=== PATIENT | male | born 2000 | race African-American/Black ===

== ENCOUNTER 2020-12-01 15:46 | Inpatient (IN) | payer OTHER ==
[2020-12-01 16:35] LABS: #Eosinphils 0.1 thou/uL (0.0-0.7); #Lymphocytes 0.9 thou/uL (1.20-3.40); #Monocytes 0.7 thou/uL (0.11-0.59); #Neutrophils 10.6 thou/uL (1.40-6.50); %Eosinophils 0.5 % (0.0-10.0); %Lymphocytes 7.5 % (28.0-48.0); %Monocytes 5.5 % (0.0-4.0); %Neutrophils 86.5 % (31.0-61.0); Hemoglobin 7.3 g/dL (14.0-18.0); Mean Corpuscular HGB CONC 31.7 g/dL (32.0-36.0); Mean Corpuscular Hemoglobin 28.2 pg (25.0-35.0); Mean Platelet Volume 8.8 fL (7.4-10.4); Platelet Count 228 thou/uL (130-400); Red Blood Cell (RBC) Count 2.59 mill/uL (4.00-5.20); White Blood Cell (WBC) Count 12.3 thou/uL (4.8-10.8)
[2020-12-01 16:54] LABS: Acetaminophen Less than 6.0 mcg/mL (10.0-30.0); Alcohol Less than 10 mg/dL (Less than 10); CK (CPK) 149 U/L (30-200); Salicylate Less than 8.0 mg/dL (15.0-30.0)
[2020-12-01 16:58] LABS: ALT (SGPT) 8 U/L (8-55); AST (SGOT) 14 U/L (5-34); Alkaline Phosphatase 57 U/L (50-130); Anion Gap 11 mmol/L (10-20); BUN (Urea Nitrogen) 15 mg/dL (8.9-20.6); Bilirubin, Total 0.6 mg/dL (0.2-1.2); Calc. Creatinine Clearance 0 mL/min (70-130); Calcium 7.4 mg/dL (7.8-10.44); Carbon Dioxide 20 mmol/L (22-29); Chloride 113 mmol/L (98-107); Globulin 2.1 g/dL (2.4-3.5); Glucose 100 mg/dL (70-105); Potassium 3.9 mmol/L (3.5-5.1); Protein, Total 5.1 g/dL (6.0-8.3); Sodium 140 mmol/L (136-145)
--- NOTE | 2020-12-01 17:28 | RAD ---
Portable frontal chest radiograph: 12/01/2020 COMPARISON: None HISTORY: Evaluate chest following central line placement FINDINGS: There is a right-sided vascular catheter, distal tip overlying the region of the proximal r ight atrium. There is no pneumothorax, lobar consolidation, or alveolar edema. Mild prominence of the cardiac silhouette. IMPRESSION: Right vascular catheter with no evidence for pneumothorax.
[2020-12-01 18:30] LABS: SARS-CoV-2 NAA Rapid Test Not Detected (NotDetected)
[2020-12-01 19:26] LABS: Lactic Acid 2.1 mmol/L (0.5-2.2)
[2020-12-01] MEDS ORDERED: Ondansetron PF 4 MG/2 ML Vial IVP PRN (20:00)
[2020-12-01] MEDS ORDERED: Acetaminophen 325 MG TAB PO PRN (20:00)
--- NOTE | 2020-12-01 20:09 | PDOC.HHP ---
Hospitalist HPI Suicidal attempt History of Present Illness: 20-year-old incarcerated male with past medical history of previous suicidal attempt admitted from local [facility] after attempted suicide by overdosing on medication. Patient states he has taking about 26 pills of combine risperidone as well as Benadryl. He denies any symptoms now. He denies any chest pain or palpitation. He was noted by digitalized and was brought to the ER. On presentation he was hypotensive and started on IV fluid bolus with IV Levophed. Patient is awake but poor historian. He denies any headache or dizziness. He denies any blurring of vision, constipation or dry mouth. Past History: PMHx: Bipolar disorder Suicide attempt PSHx: None FHx: Unable to obtainpatient not willing to talk Social: Former smoker but currently incarcerated Hospitalist HPI ROS All other systems reviewed; all pertinent +/- noted in HPI/Subj Hospitalist Exam General Appearance: NAD, awake alert General - other findings: -young male, on room air Eye: PERRL, anicteric sclera ENT: normocephalic atraumatic, no oropharyngeal lesions Neck: supple, symmetric Heart: RRR, no murmur Heart - other findings: Tachycardic Respiratory: CTAB, no wheezes Gastrointestinal: soft, non-tender, no guarding, no rigidity Extremities: no cyanosis, no clubbing Skin: normal turgor, no lesions Neurological: cranial nerve grossly intact, no focal deficits Hospitalist Results Result Diagrams: 12/01/20 16:24 12/01/20 16:24 Lab results: Laboratory Last Values WBC 12.3 thou/uL (4.8-10.8) H 12/01/20 16:24 RBC 2.59 mill/uL (4.00-5.20) L 12/01/20 16:24 Hgb 7.3 g/dL (14.0-18.0) L 12/01/20 16:24 Hct 23.1 % (42.0-52.0) L 12/01/20 16:24 MCV 89.0 fL (78.0-98.0) 12/01/20 16:24 MCH 28.2 pg (25.0-35.0) 12/01/20 16:24 MCHC 31.7 g/dL (32.0-36.0) L 12/01/20 16:24 RDW 12.0 % (11.5-14.5) 12/01/20 16:24 Plt Count 228 thou/uL (130-400) 12/01/20 16:24 MPV 8.8 fL (7.4-10.4) 12/01/20 16:24 Neutrophils % 86.5 % (31.0-61.0) H 12/01/20 16:24 Lymphocytes % 7.5 % (28.0-48.0) L 12/01/20 16:24 Monocytes % 5.5 % (0.0-4.0) H 12/01/20 16:24 Eosinophils % 0.5 % (0.0-10.0) 12/01/20 16:24 Basophils % 0.0 % (0.0-1.0) 12/01/20 16:24 Neutrophils # 10.6 thou/uL (1.40-6.50) H 12/01/20 16:24 Lymphocytes # 0.9 thou/uL (1.20-3.40) L 12/01/20 16:24 Monocytes # 0.7 thou/uL (0.11-0.59) H 12/01/20 16:24 Eosinophils # 0.1 thou/uL (0.0-0.7) 12/01/20 16:24 Basophils # 0.0 thou/uL (0.0-0.2) 12/01/20 16:24 Sodium 140 mmol/L (136-145) 12/01/20 16:24 Potassium 3.9 mmol/L (3.5-5.1) 12/01/20 16:24 Chloride 113 mmol/L (98-107) H 12/01/20 16:24 Carbon Dioxide 20 mmol/L (22-29) L 12/01/20 16:24 Anion Gap 11 mmol/L (10-20) 12/01/20 16:24 BUN 15 mg/dL (8.9-20.6) 12/01/20 16:24 Creatinine 0.72 mg/dL (0.7-1.3) 12/01/20 16:24 Estimated GFR (MDRD) Greater than 90 12/01/20 16:24 Glucose 100 mg/dL (70-105) 12/01/20 16:24 Lactic Acid 2.1 mmol/L (0.5-2.2) 12/01/20 19:01 Calcium 7.4 mg/dL (7.8-10.44) L 12/01/20 16:24 Total Bilirubin 0.6 mg/dL (0.2-1.2) 12/01/20 16:24 AST 14 U/L (5-34) 12/01/20 16:24 ALT 8 U/L (8-55) 12/01/20 16:24 Alkaline Phosphatase 57 U/L (50-130) 12/01/20 16:24 Creatine Kinase 149 U/L (30-200) 12/01/20 16:24 Serum Total Protein 5.1 g/dL (6.0-8.3) L 12/01/20 16:24 Albumin 3.0 g/dL (3.5-5.0) L 12/01/20 16:24 Globulin 2.1 g/dL (2.4-3.5) L 12/01/20 16:24 Albumin/Globulin Ratio 1.4 g/dL (1.2-2.2) 12/01/20 16:24 Salicylates Less than 8.0 mg/dL (15.0-30.0) L 12/01/20 16:24 Acetaminophen Less than 6.0 mcg/mL (10.0-30.0) L 12/01/20 16:24 Plasma Alcohol Less than 10 mg/dL (Less than 10) 12/01/20 16:24 Influenza A RNA INAAT Not Detected (NotDetected) 12/01/20 17:24 Influenza B RNA INAAT Not Detected (NotDetected) 12/01/20 17:24 SARS-CoV-2 Rap RNA(RT-PCR) Not Detected (NotDetected) 12/01/20 17:24 Hospitalist H&P A/P (1) Suicide attempt Status: Acute (2) Deliberate medication overdose Code(s): T50.902A - POISONING BY UNSP DRUG/MEDS/BIOL SUBST, SELF-HARM, INIT Status: Acute (3) Anticholinergic drug overdose Code(s): T44.3X1A - POISONING BY OTH PARASYMPATH AND SPASMOLYTICS, ACC, INIT Status: Acute (4) Anemia Code(s): D64.9 - ANEMIA, UNSPECIFIED Status: Acute Plan: Medication overdosesuspected combined risperidone and Benadryl use Poison control discussed with Continue aggressive IV fluid Continue IV Levophed and wean as tolerated We will add D5 to LR to minimize hypoglycemia from anticholinergic. Wean IV pressors as needed Admit to CCU for now Hypotensionon IV pressors Anemiaunclear etiology Obtain stool for occult blood Continue iron profile as well as vitamin B12 and folate Follow repeat CBC in a.m. If CBC less than 7 might need PRBC Suicide attempt we consult psych after medically cleared DVT prophylaxisSCDs since anemia Dispositionpossible hospital stay for more than 2 days, currently incarcerated with continuous custody of local [facility] Advance directivefull code
[2020-12-01 20:44] VITALS: BMI 26.8
[2020-12-01] MEDS: Dextrose 5%-Lactated Ringers 1,000 ML IV SCH (20:50)
[2020-12-01 20:59] LABS: Iron 18 ug/dL (65-175); Iron Binding Capacity, Total 275 mcg/dL (261-462)
[2020-12-01] MEDS: Famotidine 20 MG TAB PO SCH (21:08)
[2020-12-01 21:25] LABS: Ferritin 4.69 ng/mL (22-322); Thyroid Stimulating Hormone 0.8208 uIU/mL (0.35-4.94)
[2020-12-01] MEDS: Norepinephrine 8 MG/0.9% NS 250 ML IVPB SCH (22:18)
[2020-12-02] MEDS: Norepinephrine 8 MG/0.9% NS 250 ML IVPB SCH (02:24)
[2020-12-02] MEDS: Dextrose 5%-Lactated Ringers 1,000 ML IV SCH ×3 (04:19→21:05)
[2020-12-02 04:34] LABS: #Eosinphils 0.1 thou/uL (0.0-0.7); #Lymphocytes 1.2 thou/uL (1.20-3.40); #Monocytes 0.6 thou/uL (0.11-0.59); #Neutrophils 5.9 thou/uL (1.40-6.50); %Basophils 0.2 % (0.0-1.0); %Eosinophils 1.8 % (0.0-10.0); %Lymphocytes 15.5 % (28.0-48.0); %Monocytes 7.6 % (0.0-4.0); %Neutrophils 74.8 % (31.0-61.0); Hemoglobin 6.5 g/dL (14.0-18.0); Mean Corpuscular Hemoglobin 28.7 pg (25.0-35.0); Mean Corpuscular Volume 89.7 fL (78.0-98.0); Mean Platelet Volume 9.4 fL (7.4-10.4); Platelet Count 213 thou/uL (130-400); RBC Distribution Width 11.9 % (11.5-14.5); Red Blood Cell (RBC) Count 2.26 mill/uL (4.00-5.20); White Blood Cell (WBC) Count 7.9 thou/uL (4.8-10.8)
[2020-12-02 05:02] LABS: ALT (SGPT) 7 U/L (8-55); AST (SGOT) 15 U/L (5-34); Albumin 2.9 g/dL (3.5-5.0); Alkaline Phosphatase 57 U/L (50-130); Anion Gap 9 mmol/L (10-20); BUN (Urea Nitrogen) 12 mg/dL (8.9-20.6); Bilirubin, Total 0.9 mg/dL (0.2-1.2); Calc. Creatinine Clearance 180 mL/min (70-130); Calcium 7.8 mg/dL (7.8-10.44); Carbon Dioxide 23 mmol/L (22-29); Chloride 109 mmol/L (98-107); Glucose 141 mg/dL (70-105); Potassium 3.5 mmol/L (3.5-5.1); Protein, Total 4.9 g/dL (6.0-8.3); Sodium 137 mmol/L (136-145)
[2020-12-02] MEDS: Famotidine 20 MG TAB PO SCH ×2 (08:34→20:10)
--- NOTE | 2020-12-02 10:55 | CON ---
DATE OF CONSULTATION: 12/02/2020 REASON FOR CONSULTATION: Attempted overdose. HISTORY OF PRESENT ILLNESS: The patient is a 20-year-old black male, who is a [facility] inmate, who apparently took 26 pills of risperidone and Benadryl. He also cut himself in the left antecubital vein and lost significant amount of blood. He was briefly started on some Levophed. He has been weaned off that. His symptoms are now back to normal. He denies any suicidal ideation at the current time. PAST MEDICAL HISTORY: Bipolar disorder. PAST SURGICAL HISTORY: None. SOCIAL HISTORY: Former smoker. MEDICATIONS: Risperidone. REVIEW OF SYSTEMS: Otherwise negative. PHYSICAL EXAMINATION: VITAL SIGNS: Heart rate 83, blood pressure 146/95, O2 saturation 100%, respiratory rate 17. HEENT: Unremarkable. NECK: No adenopathy or JVD. CHEST: Clear to auscultation. CARDIAC: S1 and S2. Regular. ABDOMEN: Soft and nontender. EXTREMITIES: He has a scab over his left antecubital fossa. LABORATORY DATA: Sodium 137, potassium 3.5, chloride 109, CO2 of 23, BUN 12, creatinine 0.7, glucose 141. White blood cell count 7.9, hemoglobin 6.5, hematocrit 20, and platelet count 213. ASSESSMENT: 1. Anemia due to blood loss. 2. Overdose - intentional suicidal attempt. PLAN: The patient can be moved back to the medical floor. He needs to be under suicidal precautions with continued observation. He may or may not need a blood transfusion going forward. No further pulmonary recommendations. Job ID: [id number]
--- NOTE | 2020-12-02 18:58 | PDOC.HOSPP ---
- Subjective Encounter Date: 12/02/20 Encounter Time: 18:30 Subjective: f/u for intentional OD with suspected Benadryl/Risperdal. Treated with IVF's and observation but remained stable. - Objective Vital Signs & Weight: Vital Signs (12 hours) Temp Pulse Resp BP Pulse Ox 12/02/20 16:00 99.5 F 91 18 130/59 L 100 12/02/20 13:49 98.6 F 94 16 136/63 100 12/02/20 08:00 100 Weight Weight 176 lb 5.917 oz Most Recent Monitor Data Heart Rate from ECG 81 NIBP 146/95 NIBP BP-Mean 112 Respiration from ECG 17 SpO2 100 I&O: 12/01/20 12/02/20 12/03/20 06:59 06:59 06:59 Intake Total 2365 500 Output Total 500 300 Balance 1865 200 Result Diagrams: 12/02/20 03:30 12/02/20 03:30 Additional Labs: Accuchecks 12/02/20 12/01/20 05:03 21:12 POC Glucose 128 H 133 H Microbiology 12/02/20 08:50 Stool Stool Occult Blood (MYRTLE) - Final Laboratory Tests 12/01/20 12/01/20 12/01/20 16:24 17:24 20:23 WBC 12.3 H Hgb 7.3 L Iron 18 L TIBC 275 Ferritin Vitamin B12 Folate TSH 3rd Generation Influenza A RNA INAAT Not Detected Influenza B RNA INAAT Not Detected SARS-CoV-2 Rap RNA(RT-PCR) Not Detected 12/01/20 12/01/20 20:23 20:23 WBC Hgb Iron TIBC Ferritin 4.69 L Vitamin B12 315 Folate 13.00 TSH 3rd Generation 0.8208 Influenza A RNA INAAT Influenza B RNA INAAT SARS-CoV-2 Rap RNA(RT-PCR) Radiology Reviewed by me: Yes (PCXR - neg) Hospitalist ROS - Medication Medications: Active Medications Generic Name Dose Route Start Last Admin Trade Name Freq PRN Reason Stop Dose Admin Famotidine 20 mg 12/01/20 21:00 12/02/20 08:34 Famotidine 20 Mg Tab PO 20 mg BID BRETT Administration Dextrose/Lactated Ringer's 1,000 mls @ 125 mls/hr 12/01/20 20:15 12/02/20 15:46 D5 Lr IV 1,000 mls .Q8H [facility] Administration Hospitalist Exam Vitals: Vital Signs (12 hours) Temp Pulse Resp BP Pulse Ox 12/02/20 16:00 99.5 F 91 18 130/59 L 100 12/02/20 13:49 98.6 F 94 16 136/63 100 12/02/20 08:00 100 Weight Weight 176 lb 5.917 oz Most Recent Monitor Data Heart Rate from ECG 81 NIBP 146/95 NIBP BP-Mean 112 Respiration from ECG 17 SpO2 100 General Appearance: NAD, awake alert Eye: PERRL, anicteric sclera ENT: normocephalic atraumatic, no oropharyngeal lesions Neck: supple, symmetric, no JVD, no thyromegaly, no lymphadenopathy Heart: RRR, no gallops, no rubs, normal peripheral pulses Heart - other findings: S1, S2 Respiratory: CTAB, no wheezes, no rales, no ronchi, normal chest expansion Gastrointestinal: soft, non-tender, non-distended, normal bowel sounds, no palpable masses Extremities: no cyanosis, no clubbing, no edema Skin: normal turgor, no lesions Neurological: cranial nerve grossly intact, no new deficit Musculoskeletal: normal tone, normal strength, no muscle wasting Psychiatric: normal affect, A&O x 3 Hosp A/P (1) Suicide attempt Status: Acute Plan: Suspected, stable overall, [facility] consult for dispo planning (2) Anticholinergic drug overdose Code(s): T44.3X1A - POISONING BY OTH PARASYMPATH AND SPASMOLYTICS, ACC, INIT Status: Acute Plan: Stable currently (3) Anemia Code(s): D64.9 - ANEMIA, UNSPECIFIED Status: Chronic Qualifiers: Anemia type: iron deficiency Plan: IV Iron infusion, FeSO4 for computer terminal operator use (4) Deliberate medication overdose Code(s): T50.902A - POISONING BY UNSP DRUG/MEDS/BIOL SUBST, SELF-HARM, INIT Status: Acute - Plan psychologist social Stable medically IV Iron infusion today FeSO4 for d/c Consider PRBC's [facility] consult for dispo planning AM lab: CBC
[2020-12-02] MEDS ORDERED: Iron Sucrose Complex 200 MG in Sodium Chloride 0.9% 100 ML IVPB SCH (19:00)
[2020-12-02] MEDS ORDERED: Iron, Sodium Ferric Gluconate 250 MG in Sodium Chloride 0.9% 100 ML IVPB SCH (19:15)
[2020-12-02] MEDS ORDERED: FLU VACC QS2020-21(6MOS UP)/PF 60 MCG/0.5 ML SYRINGE IM ONE (21:00)
[2020-12-03 05:34] LABS: #Basophils 0.1 thou/uL (0.0-0.2); #Eosinphils 0.2 thou/uL (0.0-0.7); #Lymphocytes 1.7 thou/uL (1.20-3.40); #Monocytes 0.5 thou/uL (0.11-0.59); #Neutrophils 2.7 thou/uL (1.40-6.50); %Eosinophils 3.7 % (0.0-10.0); %Lymphocytes 33.2 % (28.0-48.0); %Monocytes 9.9 % (0.0-4.0); %Neutrophils 52.2 % (31.0-61.0); Hemoglobin 6.6 g/dL (14.0-18.0); Mean Corpuscular HGB CONC 31.8 g/dL (32.0-36.0); Mean Corpuscular Volume 87.9 fL (78.0-98.0); Mean Platelet Volume 8.8 fL (7.4-10.4); Platelet Count 221 thou/uL (130-400); Red Blood Cell (RBC) Count 2.37 mill/uL (4.00-5.20); White Blood Cell (WBC) Count 5.1 thou/uL (4.8-10.8)
[2020-12-03] MEDS: Dextrose 5%-Lactated Ringers 1,000 ML IV SCH ×2 (06:15→09:52)
[2020-12-03] MEDS: Famotidine 20 MG TAB PO SCH (08:24)
[2020-12-03 20:30] VITALS: BP 115/72; TEMP 98
--- NOTE | 2020-12-05 09:09 | DIS ---
DATE OF ADMISSION: 12/01/2020 DATE OF DISCHARGE: 12/03/2020 DISCHARGE DIAGNOSES: 1. Suicide attempt with intentional overdose of risperidone and Benadryl. 2. Chronic normocytic anemia with iron deficiency. 3. Left antecubital fossa laceration, self-inflicted. CONSULTATIONS: 1. Dr. Raymond Huitron with Pulmonology/Critical Care Service. 2. [facility] Service. PERTINENT LABORATORY AND X-RAY FINDINGS: Serum iron level 18, TIBC 275, ferritin 4.69. LFTs within normal limits. Vitamin B12 level 315. Folate level 13.0. TSH 0.82. CBC showed a hemoglobin ranging between 6.5 to 7.3. Plasma alcohol level less than 10 on 12/01/2020. COVID-19 PCR not detected on 12/01/2020. Influenza A and B RNA not detected on 12/01/2020. Stool Hemoccult negative x1 on 12/02/2020. Portable chest x-ray dated 12/01/2020, showed no acute cardiopulmonary process. HOSPITAL COURSE: The patient was initially admitted after presenting with suicide attempt with intentional overdose of risperidone and Benadryl with approximate 26 pill ingestion. The patient was initially managed for hypotension, given IV fluid boluses in addition to IV Levophed. The patient was monitored in the Critical Care Unit without decompensation. The patient was also managed for a small laceration to the left upper extremity with primary closure with sutures. The patient continued on intravenous fluids throughout his hospital course, remaining clinically stable. The patient was evaluated by the [facility] Service and deemed an appropriate candidate to return to the [facility] with outpatient followup with [facility] Services through the [facility]. The patient did receive 1 unit of packed red blood cells during the hospital course in addition to IV iron infusion. Current recommendations are for outpatient monitoring of CBC and continuation of ferrous sulfate supplementation. I have examined the patient at the time of discharge and discussed followup and disposition instructions with [facility] Services. The patient ready for discharge on 12/03/2020. DISCHARGE MEDICATIONS: 1. Ferrous sulfate 325 mg p.o. b.i.d. 2. Risperidone 2 mg p.o. daily. 3. Omeprazole 20 mg p.o. daily. 4. Benadryl 25 mg p.o. daily. FOLLOWUP: The patient may follow up with [facility] Services through [facility]. CONDITION ON DISCHARGE: Stable. Recommendations for maximum suicide precautions after returning to [facility]. DIET: Regular. CODE STATUS: Full. DISPOSITION: Discharged to [place] [facility] on 12/03/2020. TIME SPENT: Total time preparing and coordinating discharge, 35 minutes. Job ID: [id number]
== END 2020-12-03 19:50 | DRG 918 ==
LOC: ERS 15:46 → IMCU/EMU 18:52 → T4-A 12-02 13:49
PROVIDERS: ADMIT Internal Medicine; ATTEND Family Medicine
PROC: 3E033XZ Introduction of Vasopressor into Peripheral Vein, Percutaneous Approach (ICD-10-PCS; principal; 2020-12-01)
PROC: 30233N1 Transfusion of Nonautologous Red Blood Cells into Peripheral Vein, Percutaneous Approach (ICD-10-PCS; 2020-12-02)
DX: T45.0X2A Poisoning by antiallergic and antiemetic drugs, intentional self-harm, initial encounter (principal); Z20.822 Contact with and (suspected) exposure to COVID-19; T43.592A Poisoning by other antipsychotics and neuroleptics, intentional self-harm, initial encounter; F41.9 Anxiety disorder, unspecified; F31.9 Bipolar disorder, unspecified; I95.2 Hypotension due to drugs; D50.0 Iron deficiency anemia secondary to blood loss (chronic); Z28.21 Immunization not carried out because of patient refusal; Z87.891 Personal history of nicotine dependence; Z79.899 Other long term (current) drug therapy
CPT/HCPCS: 0240U; 36415; 36416; 36430; 36556; 71045; 80053; 80307; 82274; 82550; 82607; 82728; 82746; 83540; 83550; 83605; 84443; 85025; 86850; 86900; 86901; 93005; 96365; 96366; 99292; J2916; J3490; P9016